=== PATIENT | female | born 1995 | race American Indian/Alaskan Native ===

== ENCOUNTER 2020-10-17 02:50 | Emergency (ER) | payer OTHER ==
[2020-10-17] MEDS ORDERED: ACETAMINOPHEN W/CODEINE 300-30 MG TAB PO ONE (03:43)
[2020-10-17] MEDS ORDERED: DICYCLOMINE 20 MG/2 ML INJ IM ONE (03:43)
[2020-10-17 04:53] LABS: Basophils # (Auto) 0.1 K/mm3 (0.0-0.1); Basophils % (Auto) 0.6 % (0.0-1.8); Eosinophils # (Auto) 0.1 K/mm3 (0.0-0.4); Eosinophils % (Auto) 1.2 % (0.0-4.3); Hematocrit 37.1 % (30.3-42.9); Hemoglobin 12.8 gm/dl (10.1-14.3); Lymphocytes # (Auto) 2.8 K/mm3 (1.2-5.4); Lymphocytes % (Auto) 24.4 % (13.4-35.0); Mean Corpuscular HGB Conc 35 % (30-34); Mean Corpuscular Volume 83 fl (79-97); Monocytes # (Auto) 0.7 K/mm3 (0.0-0.8); Monocytes % (Auto) 5.9 % (0.0-7.3); Platelet Count 233 K/mm3 (140-440); Red Blood Count 4.49 M/mm3 (3.65-5.03); Red Cell Distribution Width 15.4 % (13.2-15.2)
[2020-10-17 05:34] LABS: HCG Qualitative,Urine Positive (Negative)
[2020-10-17 05:48] LABS: Bacteria,Urine 2+ /HPF (Negative); Bilirubin,Urine NEG (Negative); Blood,Urine LG (Negative); Color,Urine Red (Yellow); Urobilinogen,Urine < 2.0 mg/dL (<2.0)
[2020-10-17 05:49] LABS: RBC,Urine > 182.0 /HPF (0.0-6.0)
--- NOTE | 2020-10-17 07:24 | Ultrasound Report ---
US OB <= 14 weeks fetus INDICATION / CLINICAL INFORMATION: vafg bleeding pos hcg. COMPARISON: None available. FINDINGS: Gestational sac is demonstrated within the uterus. Average sac diameter measures 4.6 cm, which would correspond to a 10 week 1 day gestational age. However, there is no evidence of pole or yolk sa c. In addition, the gestational sac is abnormally elongated. Both ovaries are unremarkable. Color Doppler imaging shows normal vascular flow in each. No free flui d. IMPRESSION: 1. Empty intrauterine gestational sac. No evidence of intrauterine . Signer Name: Raghavendra Perez MD Signed: 10/17/2020 7:19 AM Workstation Name: [id number]
--- NOTE | 2020-10-17 07:43 | Emergency Department Report ---
ED Female HPI - General Chief complaint: Abdominal Pain Stated complaint: SEVERE MENSTRUAL CRAMPS SINCE YESTERDAY Time Seen by Provider: 10/17/20 07:22 Source: patient Mode of arrival: Ambulatory Limitations: No Limitations - History of Present Illness Initial comments: Patient is a 25-year-old female that comes to the emergency room complaining of heavy menses. She states her last menstrual period was 2 weeks ago. She denies concern for . She has no dysuria. No vaginal discharge. Patient denies fever or chills. She denies abdominal pain. She has not seen her OB or PCP. Patient has been once before. This baby at . Patient denies fever or chills, abdominal pain, back pain. On arrival to ER she is ambulatory nontoxic [id number] MD Complaint: vaginal bleeding -: Gradual, days(s) Severity: mild Improves with: none Worsens with: none Associated Symptoms: denies other symptoms, vaginal bleeding. denies: vaginal discharge, abdominal pain, nausea/vomiting, fever/chills, headaches, loss of appetite, dysuria, hematuria, rash, seizure, shortness of breath, weakness - Related Data Sexually active: Yes Previous Rx's Medication Instructions Recorded Last Taken Type Amoxicillin [Trimox CAP] 500 mg PO BID #20 capsule 10/17/20 Unknown Rx Allergies Allergy/AdvReac Type Severity Reaction Status Date / Time philip Allergy Unknown Verified 10/17/20 03:01 ED Review of Systems ROS: Stated complaint: SEVERE MENSTRUAL CRAMPS SINCE YESTERDAY Other details as noted in HPI Comment: All other systems reviewed and negative ED Past Medical Hx - Past Medical History Previous Medical History?: No - Surgical History Past Surgical History?: No - Family History Family history: no significant - Social History Smoking Status: Never Smoker Substance Use Type: None - Medications Home Medications: Home Medications Medication Instructions Recorded Confirmed Last Taken Type Amoxicillin [Trimox CAP] 500 mg PO BID #20 capsule 10/17/20 Unknown Rx ED Physical Exam - General Limitations: No Limitations General appearance: alert, in no apparent distress - Head Head exam: Present: atraumatic, normocephalic - Eye Eye exam: Present: normal appearance - ENT ENT exam: Present: mucous membranes moist - Neck Neck exam: Present: normal inspection - Respiratory Respiratory exam: Present: normal lung sounds bilaterally. Absent: respiratory distress - Cardiovascular Cardiovascular Exam: Present: regular rate, normal rhythm. Absent: systolic murmur, diastolic murmur, rubs, gallop - GI/Abdominal GI/Abdominal exam: Present: soft, normal bowel sounds - Bi-manual exam: Present: normal bi-manual exam - Extremities Exam Extremities exam: Present: normal inspection - Back Exam Back exam: Present: normal inspection - Neurological Exam Neurological exam: Present: alert, oriented X3 - Psychiatric Psychiatric exam: Present: normal affect, normal mood - Skin Skin exam: Present: warm, dry, intact, normal color. Absent: rash ED Course Vital Signs 10/17/20 10/17/20 10/17/20 03:00 03:50 08:31 Temperature 99.5 F 97.1 F L Pulse Rate 86 73 Respiratory 18 19 18 Rate Blood Pressure 112/68 102/58 O2 Sat by Pulse 100 100 Oximetry - Reevaluation(s) Reevaluation #1: 10/17/20 07:42 ADD ON QUANT HCG ED Medical Decision Making - Lab Data Result diagrams: 10/17/20 04:18 - Radiology Data Radiology results: report reviewed, image reviewed SEE REPORT - Medical Decision Making Labs 10/17/20 10/17/20 10/17/20 04:18 07:08 07:58 WBC 11.3 H RBC 4.49 Hgb 12.8 Hct 37.1 MCV 83 MCH 29 MCHC 35 H RDW 15.4 H Plt Count 233 Lymph % (Auto) 24.4 Robertson % (Auto) 5.9 Eos % (Auto) 1.2 Baso % (Auto) 0.6 Lymph # (Auto) 2.8 Robertson # (Auto) 0.7 Eos # (Auto) 0.1 Baso # (Auto) 0.1 Seg Neutrophils % 67.9 Seg Neutrophils # 7.7 HCG, Quant 6136 H Urine Color Urine Turbidity Urine pH Ur Specific [place] Urine Protein Urine Glucose (UA) Urine Ketones Urine Blood Urine Nitrite Ur Reducing Substances Urine Bilirubin Urine Ictotest Urine Urobilinogen Ur Leukocyte Esterase Urine WBC (Auto) Urine RBC (Auto) U Epithel Cells (Auto) Urine Bacteria (Auto) Urine HCG, Qual Blood Type O POSITIVE 10/17/20 Unknown WBC RBC Hgb Hct MCV MCH MCHC RDW Plt Count Lymph % (Auto) Robertson % (Auto) Eos % (Auto) Baso % (Auto) Lymph # (Auto) Robertson # (Auto) Eos # (Auto) Baso # (Auto) Seg Neutrophils % Seg Neutrophils # HCG, Quant Urine Color Red Urine Turbidity Cloudy Urine pH 6.0 Ur Specific [place] 1.016 Urine Protein 100 mg/dl Urine Glucose (UA) Neg Urine Ketones Neg Urine Blood Lg Urine Nitrite Neg Ur Reducing Substances Not Reportable Urine Bilirubin Neg Urine Ictotest Not Reportable Urine Urobilinogen < 2.0 Ur Leukocyte Esterase Tr Urine WBC (Auto) 17.0 H Urine RBC (Auto) > 182.0 U Epithel Cells (Auto) 5.0 Urine Bacteria (Auto) 2+ Urine HCG, Qual Positive A Blood Type Vital Signs - 24 hr 10/17/20 10/17/20 10/17/20 03:00 03:50 08:31 Temperature 99.5 F 97.1 F L Pulse Rate 86 73 Respiratory 18 19 18 Rate Blood Pressure 112/68 102/58 O2 Sat by Pulse 100 100 Oximetry Urine positive. Beta quant 6136 Ultrasound noted see report UA noted Vital signs are normal. Patient is ambulatory toxic [id number] on exam. I have discussed the findings of today's work-up with the patient. She understands that she is and threatening miscarriage. Her last menstrual she says was 2 weeks ago. Ultrasound was noted. There is no ectopic . She has no UTI. Her exam is unremarkable. Patient is being discharged home with pelvic rest and discharge plan of care which includes 48-hour repeat of her labs and ultrasound to determine viability and progression of this . Patient understands she needs to take her antibiotic until it is gone. She also understands that we will call her if we need to to change the antibiotic pending culture growth. She verbalizes un derstanding. She was given referral to DIRECTOR OF CUSTOMER ACQUISITION. On discharge the patient remains ambulatory, [id number] nontoxic, taking p.o. and in no acute distress. - Differential Diagnosis Rule out UTI, , dysfunctional uterine bleeding with or without ane Critical care attestation.: If time is entered above; I have spent that time in minutes in the direct care of this critically ill patient, excluding procedure time. ED Disposition Clinical Impression: Vaginal bleeding during , UTI (urinary tract infection) Disposition: TO HOME OR SELFCARE Is pt being admited?: No Does the pt Need Aspirin: No Condition: Stable Instructions: Urinary Tract Infection, Adult, Activity Restriction During , Abdominal Pain (ED) Additional Instructions: MED ORDERED TODAY FOLLOW UP WITH OBGYN ON TUESDAY FOR REEVALUATION TELL THEM YOU WERE HERE AND THEY CAN RETRIEVE YOUR RECORDS YOU HAVE A URINE CULTURE PENDING HERE IN ER THAT THE OBGYN CAN FOLLOW UP ON STAY WELL HYDRATED PELVIC REST TYLENOL FOR PAIN Prescriptions: Amoxicillin [Trimox CAP] 500 mg PO BID #20 capsule Referrals: VITALIY ORTEGA MD [Staff Physician] - 3-5 Days Forms: Work/School Release Form(ED) Time of Disposition: 07:40
[2020-10-17 08:35] VITALS: BP 102/58
== END 2020-10-17 08:35 | disposition home or self-care (01) ==
LOC: ED 02:50
DX: O20.9 Hemorrhage in early pregnancy, unspecified (principal); O23.41 Unspecified infection of urinary tract in pregnancy, first trimester; Z3A.10 10 weeks gestation of pregnancy; Z91.018 Allergy to other foods; Z79.899 Other long term (current) drug therapy
CPT/HCPCS: 36415; 76801; 81001; 81025; 84702; 85025; 86900; 86901; 87086; 96372; 99284; J0500